=== PATIENT | male | born 1995 | race African-American/Black ===

== ENCOUNTER → 2018-05-09 | Outpatient (CLI) | payer OTHER ==
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
== END ==
LOC: RAD 15:17
PROVIDERS: ATTEND Orthopaedic Surgery
DX: S83.411A Sprain of medial collateral ligament of right knee, initial encounter (principal); M89.8X6 Other specified disorders of bone, lower leg
CPT/HCPCS: 73721

== ENCOUNTER 2019-01-10 01:50 | Emergency (ER) | payer OTHER ==
[~2019-01-10] VITALS: Ht 177.8 cm; Wt 86.2 kg
[2019-01-10 02:23] LABS: BASOPHILS % (AUTO) 0 % (0-10); EOSINOPHILS % (AUTO) 12 % (0-10); HEMATOCRIT 44 % (40-54); HEMOGLOBIN 15.5 G/DL (13.3-17.7); LYMPHOCYTES # (AUTO) 1.5 X 10^3 (1.0-4.0); LYMPHOCYTES % (AUTO) 18 % (12-44); MEAN CORPUSCULAR HEMOGLOBIN 28 PG (25-34); MEAN CORPUSCULAR HGB CONC 35 G/DL (32-36); MEAN CORPUSCULAR VOLUME 81 FL (80-99); MEAN PLATELET VOLUME 11.2 FL (7.4-10.4); MONOCYTES # (AUTO) 0.8 X 10^3 (0.0-1.0); MONOCYTES % (AUTO) 10 % (0-12); NEUTROPHILS # (AUTO) 4.9 X 10^3 (1.8-7.8); NEUTROPHILS % (AUTO) 59 % (42-75); PLATELET COUNT 166 10^3/uL (130-400); RED CELL DISTRIBUTION WIDTH 13.1 % (10.0-14.5); WHITE BLOOD COUNT 8.3 10^3/uL (4.3-11.0)
[2019-01-10 02:29] LABS: INR 1.1 (0.8-1.4); PROTHROMBIN TIME PATIENT 14.4 SEC (12.2-14.7)
[2019-01-10 02:37] LABS: ALANINE AMINOTRANSFERASE 67 U/L (0-55); ALBUMIN 4.5 GM/DL (3.2-4.5); ALKALINE PHOSPHATASE 133 U/L (40-136); AMYLASE 81 U/L (25-125); BILIRUBIN,TOTAL 0.7 MG/DL (0.1-1.0); BUN/CREATININE RATIO 15; CALCIUM 9.7 MG/DL (8.5-10.1); CARBON DIOXIDE 26 MMOL/L (21-32); CHLORIDE 102 MMOL/L (98-107); CREATININE SERUM 1.56 MG/DL (0.60-1.30); GFR ESTIMATED > 60; GLUCOSE 91 MG/DL (70-105); LIPASE 16 U/L (8-78); MAGNESIUM 2.2 MG/DL (1.8-2.4); POTASSIUM 3.9 MMOL/L (3.6-5.0); SODIUM 139 MMOL/L (135-145); TOTAL PROTEIN 7.7 GM/DL (6.4-8.2)
[2019-01-10] MEDS ORDERED: LACTATED RINGERS 1,000 ML IV ONE ×2 (02:51→03:11)
[2019-01-10 02:52] LABS: BILIRUBIN,URINE NEGATIVE (NEGATIVE); CLARITY,URINE CLEAR; COLOR,URINE YELLOW; GLUCOSE, URINE (UA) NEGATIVE (NEGATIVE); KETONES,URINE NEGATIVE (NEGATIVE); LEUKOCYTE ESTERASE ,URINE NEGATIVE (NEGATIVE); NITRITE,URINE NEGATIVE (NEGATIVE); PH,URINE 6 (5-9); PROTEIN,URINE 1+ (NEGATIVE); UROBILINOGEN,URINE NORMAL (NORMAL)
[2019-01-10 03:00] LABS: BACTERIA,URINE NEGATIVE /HPF; URINE OTHER FEW SPERM /HPF
[2019-01-10] MEDS ORDERED: KETOROLAC 30 MG/ML VIAL IVP ONE (03:00)
[2019-01-10 03:08] LABS: AMPHETAMINE SCREEN, URINE NEGATIVE (NEGATIVE); BARBITURATE SCREEN URINE NEGATIVE (NEGATIVE); BENZODIAZEPINES SCREEN URINE NEGATIVE (NEGATIVE); CANNABINOID SCREEN, URINE NEGATIVE (NEGATIVE); COCAINE SCREEN URINE NEGATIVE (NEGATIVE); METHADONE STAT NEGATIVE (NEGATIVE); METHAMPHETAMINE SCREEN URINE S NEGATIVE (NEGATIVE); OPIATE SCREEN URINE NEGATIVE (NEGATIVE); OXYCODONE STAT NEGATIVE (NEGATIVE); PROPOXYPHENE STAT NEGATIVE (NEGATIVE); TRICYCLIC ANTIDEPRESSANTS SCRE NEGATIVE (NEGATIVE)
[2019-01-10] MEDS ORDERED: NS IV 1000 ML 0 ML ONE (03:11)
[2019-01-10] MEDS ORDERED: METH4TAB PO ×2 (03:30→03:55)
--- NOTE | 2019-01-10 03:30 | ED Chest Pain ---
General Chief Complaint: Chest Pain Stated Complaint: PT STS CHEST HURTS Source: patient Exam Limitations: no limitations History of Present Illness Date Seen by Provider: Jan 10, 2019 Time Seen by Provider: 02:10 Initial Comments PT ARRIVES VIA POV FROM HOME C/O LEFT UPPER CHEST PAIN SINCE 0100 PAIN BEGAN WHILE TRYING TO GO TO SLEEP PAIN IS CONSTANT AND NOTHING WORSENS OR IMPROVES PAIN HAS NOT TAKEN ANYTHING FOR PAIN NO RADIATION OF PAIN NO SHORTNESS OF BREATH AND DOES NOT HURT TO BREATHE NO SWEATS NO SWELLING ANYWHERE NO COUGH, URI SYMPTOMS OR RECENT ILLNESS NO FEVER NO HISTORY OF SIMILAR DENIES WORKING OUT MORE THAN NORMAL--PT IS FOOTBALL PLAYER DENIES ANY ENERGY DRINKS, OR SUPPLEMENTS, ETC. PCP: NONE / [employer] STUDENT Allergies and Home Medications Allergies Coded Allergies: meperidine (Verified Allergy, Unknown, Rash, 01/10/19) Home Medications Methylprednisolone 4 Mg Tab.ds.pk, 4 MG PO UD Prescribed by: SOFI ASKEW on 01/10/19 0765 Patient Home Medication List Home Medication List Reviewed: Yes Review of Systems Review of Systems Constitutional: no symptoms reported EENTM: No Symptoms Reported Respiratory: No Symptoms Reported Cardiovascular: See HPI, Chest Pain Gastrointestinal: No Symptoms Reported Genitourinary: No Symptoms Reported Musculoskeletal: no symptoms reported Skin: no symptoms reported Psychiatric/Neurological: No Symptoms Reported Endocrine: No Symptoms Reported Hematologic/Lymphatic: No Symptoms Reported Past Gucictw-Doyjzg-Ahaywh Hx Patient Social History Alcohol Use: Denies Use Recreational Drug Use: No Smoking Status: Never a Smoker Recent Foreign Travel: No Contact w/Someone Who Travel: No Past Medical History Surgeries: Yes (BILATERAL SHOULDER SURGERIES/LABRUM TEARS; RIGHT KNEE ARTHROSCOPY) Orthopedic Respiratory: No Cardiac: No Neurological: No Genitourinary: No Gastrointestinal: No Musculoskeletal: No Endocrine: No HEENT: No Cancer: No Psychosocial: No Integumentary: No Blood Disorders: No Physical Exam Vital Signs Vital Signs - First Documented 01/10/19 01/10/19 02:03 04:15 Temp 96.4 Pulse 73 Resp 18 B/P (MAP) 142/96 (111) Pulse Ox 100 O2 Delivery Room Air Capillary Refill : Height, Weight, BMI Height: '" Weight: lbs. oz. kg; BMI Method: General Appearance: No Apparent Distress, WD/WN (VERY ATHLETIC/MUSCULAR BUILD), Other (SMILING, MOVES WITHOUT DIFFICULTY, DOES NOT APPEAR TO BE IN ANY DISCOMFORT OR DISTRESS OR APPEAR ILL) Neck: Full Range of Motion, Normal Inspection, Non Tender, Supple Respiratory: Chest Non Tender, Normal Breath Sounds, No Accessory Muscle Use, No Respiratory Distress Cardiovascular: Regular Rate, Rhythm, No Edema, No JVD, No Murmur, Normal Peripheral Pulses Gastrointestinal: Normal Bowel Sounds, No Organomegaly, No Pulsatile Mass, Non Tender, Soft Extremity: Normal Capillary Refill, Normal Inspection, Normal Range of Motion, Non Tender, No Calf Tenderness, No Pedal Edema Neurologic/Psychiatric: Alert, Oriented x3, No Motor/Sensory Deficits, Normal Mood/Affect, ethics manager II-XII Norm as Tested Skin: Normal Color (PT IS BLACK), Warm/Dry; No Rash Progress/Results/Core Measures Results/Orders Lab Results Laboratory Tests Test 01/10/19 02:08 01/10/19 02:30 Range/Units White Blood Count 8.3 4.3-11.0 10^3/uL Red Blood Count 5.46 4.35-5.85 10^6/uL Hemoglobin 15.5 13.3-17.7 G/DL Hematocrit 44 40-54 % Mean Corpuscular Volume 81 80-99 FL Mean Corpuscular Hemoglobin 28 25-34 PG Mean Corpuscular Hemoglobin Concent 35 32-36 G/DL Red Cell Distribution Width 13.1 10.0-14.5 % Platelet Count 166 130-400 10^3/uL Mean Platelet Volume 11.2 H 7.4-10.4 FL Neutrophils (%) (Auto) 59 42-75 % Lymphocytes (%) (Auto) 18 12-44 % Monocytes (%) (Auto) 10 0-12 % Eosinophils (%) (Auto) 12 H 0-10 % Basophils (%) (Auto) 0 0-10 % Neutrophils # (Auto) 4.9 1.8-7.8 X 10^3 Lymphocytes # (Auto) 1.5 1.0-4.0 X 10^3 Monocytes # (Auto) 0.8 0.0-1.0 X 10^3 Eosinophils # (Auto) 1.0 H 0.0-0.3 10^3/uL Basophils # (Auto) 0.0 0.0-0.1 10^3/uL Erythrocyte Sedimentation Rate 3 0-15 MM/HR Prothrombin Time 14.4 12.2-14.7 SEC INR Comment 1.1 0.8-1.4 Activated Partial Thromboplast Time 29 24-35 SEC Sodium Level 139 135-145 MMOL/L Potassium Level 3.9 3.6-5.0 MMOL/L Chloride Level 102 98-107 MMOL/L Carbon Dioxide Level 26 21-32 MMOL/L Anion Gap 11 5-14 MMOL/L Blood Urea Nitrogen 24 H 7-18 MG/DL Creatinine 1.56 H 0.60-1.30 MG/DL Estimat Glomerular Filtration Rate > 60 BUN/Creatinine Ratio 15 Glucose Level 91 70-105 MG/DL Calcium Level 9.7 8.5-10.1 MG/DL Corrected Calcium 9.3 8.5-10.1 MG/DL Magnesium Level 2.2 1.8-2.4 MG/DL Total Bilirubin 0.7 0.1-1.0 MG/DL Aspartate Amino Transf (AST/SGOT) 43 H 5-34 U/L Alanine Aminotransferase (ALT/SGPT) 67 H 0-55 U/L Alkaline Phosphatase 133 40-136 U/L Myoglobin 101.8 H 10.0-92.0 NG/ML Troponin I < 0.028 <0.028 NG/ML B-Type Natriuretic Peptide < 10.0 <100.0 PG/ML Total Protein 7.7 6.4-8.2 GM/DL Albumin 4.5 3.2-4.5 GM/DL Amylase Level 81 25-125 U/L Lipase 16 8-78 U/L Serum Alcohol < 10 <10 MG/DL Urine Color YELLOW Urine Clarity CLEAR Urine pH 6 5-9 Urine Specific [place] 1.020 1.016-1.022 Urine Protein 1+ H NEGATIVE Urine Glucose (UA) NEGATIVE NEGATIVE Urine Ketones NEGATIVE NEGATIVE Urine Nitrite NEGATIVE NEGATIVE Urine Bilirubin NEGATIVE NEGATIVE Urine Urobilinogen NORMAL NORMAL MG/DL Urine Leukocyte Esterase NEGATIVE NEGATIVE Urine RBC (Auto) NEGATIVE NEGATIVE Urine RBC NONE /HPF Urine WBC NONE /HPF Urine Squamous Epithelial Cells NONE /HPF Urine Crystals NONE /LPF Urine Bacteria NEGATIVE /HPF Urine Casts NONE /LPF Urine Mucus SMALL H /LPF Urine Other FEW SPERM H /HPF Urine Culture Indicated NO Urine Opiates Screen NEGATIVE NEGATIVE Urine Oxycodone Screen NEGATIVE NEGATIVE Urine Methadone Screen NEGATIVE NEGATIVE Urine Propoxyphene Screen NEGATIVE NEGATIVE Urine Barbiturates Screen NEGATIVE NEGATIVE Ur Tricyclic Antidepressants Screen NEGATIVE NEGATIVE Urine Phencyclidine Screen NEGATIVE NEGATIVE Urine Amphetamines Screen NEGATIVE NEGATIVE Urine Methamphetamines Screen NEGATIVE NEGATIVE Urine Benzodiazepines Screen NEGATIVE NEGATIVE Urine Cocaine Screen NEGATIVE NEGATIVE Urine Cannabinoids Screen NEGATIVE NEGATIVE My Orders Orders - ANT ASKEWA [place] DO Cbc With Automated Diff (01/10/19 02:14) Magnesium (01/10/19 02:14) Ekg Tracing (01/10/19 02:14) Cardiac Profile 1 (01/10/19 02:14) Comprehensive Metabolic Panel (01/10/19 02:14) Myoglobin Serum (01/10/19 02:14) Protime With Inr (01/10/19 02:14) Partial Thromboplastin Time (01/10/19 02:14) O2 (01/10/19 02:14) Monitor-Rhythm Ecg Trace Only (01/10/19 02:14) Ed Iv/Invasive Line Start (01/10/19 02:14) Lipase (01/10/19 02:14) Amylase (01/10/19 02:14) BNP (01/10/19 02:14) Alcohol (01/10/19 02:14) Erythrocyte Sedimentation Rate (01/10/19 02:14) Drug Screen Stat (Urine) (01/10/19 02:14) Ua Culture If Indicated (01/10/19 02:14) Ketorolac Injection (Toradol Injection) (01/10/19 03:00) Chest Pa/Lat (2 View) (01/10/19 02:50) Ed Iv/Invasive Line Start (01/10/19 02:51) Lactated Ringers (Lr 1000 Ml Iv Solution (01/10/19 02:51) Ns Iv 1000 Ml (Sodium Chloride 0.9%) (01/10/19 03:11) Ekg Tracing (01/10/19 03:38) Lactated Ringers (Lr 1000 Ml Iv Solution (01/10/19 03:11) Medications Given in ED Current Medications Medications Dose Ordered Sig/Falguni Route Start Time Stop Time Status Last Admin Dose Admin Ketorolac Tromethamine 30 mg ONCE ONCE IVP 01/10/19 03:00 01/10/19 03:01 DC 01/10/19 03:19 30 MG Lactated Ringer's 1,000 ml @ 0 mls/hr Q0M ONCE IV 01/10/19 02:51 01/10/19 04:16 DC 01/10/19 03:18 999 MLS/HR Vital Signs/I&O 01/10/19 01/10/19 01/10/19 02:03 02:03 04:15 Temp 96.4 96.4 Pulse 73 67 Resp 18 18 B/P (MAP) 142/96 (111) 145/78 (100) Pulse Ox 100 O2 Delivery Room Air Room Air Progress Progress Note : Progress Note UNEVENTFUL ER STAY Initial ECG Impression Date: Jan 10, 2019 Initial ECG Impression Time: 02:04 Initial ECG Rate: 73 Initial ECG Rhythm: Normal Sinus Initial ECG Impression: Nonspecific Changes Initial ECG Comparisson: No Previous ECG Available EKG : EKG Time: 04:02 Rate: 64 Rhythm: Normal Sinus ECG Comparisson: Unchanged ECG Impression: Nonspecific Changes Diagnostic Imaging Comments CXR--NO ACUTE PROCESS, PENDING RADIOLOGIST REVIEW Reviewed: Reviewed by Me Departure Impression Primary Impression: LEFT UPPER CHEST PAIN Additional Impressions: Dehydration Renal insufficiency MILDLY ELEVATED LIVER ENZYMES Disposition: 01 HOME, SELF-CARE Condition: Stable Departure-Patient Inst. Referrals: NO,LOCAL PHYSICIAN (PCP/Family) Primary Care Physician Patient Instructions: Chest Pain That Is Not Caused by the Heart (DC), Dehydration, Adult (DC), Liver Function Test Add. Discharge Instructions: INCREASE YOUR FLUIDS--DRINK ENOUGH SO YOU ARE URINATING EVERY 2 -3 HOURS WHILE AWAKE FOLLOW UP WITH OF ELIU IN 2-3 DAYS IF NO BETTER, RETURN TO ER IF WORSE All discharge instructions reviewed with patient and/or family. Voiced understan [place]. Scripts Methylprednisolone (Medrol) 4 Mg Tab.ds.pk 4 MG PO UD, #1 PKG Prov: SOFI ASKEW DO 01/10/19 SOFI ASKEW DO Jan 10, 2019 03:30
[2019-01-10 04:15] VITALS: BP 145/78
--- NOTE | 2019-01-10 05:53 | Diagnostic Imaging Report ---
CHEST PA/LAT (2 VIEW) Indication: Chest pain Comparison: None available. Findings: No focal pneumonic consolidation, pleural effusion or pneumothorax. Normal heart size and pulmonary vasculature. Impression: No acute cardiopulmonary process. Dictated by: Dictated on workstation # [id number]
== END 2019-01-10 04:16 | disposition home or self-care (01) ==
LOC: EDUNIT# 01:50 → ER 01:53
DX: R07.9 Chest pain, unspecified (principal); E86.0 Dehydration; N28.9 Disorder of kidney and ureter, unspecified; R94.5 Abnormal results of liver function studies; Z88.8 Allergy status to other drugs, medicaments and biological substances; Z79.52 Long term (current) use of systemic steroids; Z98.890 Other specified postprocedural states
CPT/HCPCS: 36415; 71046; 80053; 80306; 80320; 81000; 82150; 83690; 83735; 83874; 83880; 84484; 85025; 85610; 85652; 85730; 93005; 93041; 96361; 96374

== ENCOUNTER 2019-03-02 16:03 | Outpatient (RCR) | payer OTHER ==
[2019-02-15 16:32] LABS: BASOPHILS % (AUTO) 1 % (0-10); EOSINOPHILS # (AUTO) 0.7 10^3/uL (0.0-0.3); EOSINOPHILS % (AUTO) 10 % (0-10); HEMATOCRIT 46 % (40-54); LYMPHOCYTES # (AUTO) 1.8 X 10^3 (1.0-4.0); LYMPHOCYTES % (AUTO) 26 % (12-44); MEAN CORPUSCULAR HEMOGLOBIN 29 PG (25-34); MEAN CORPUSCULAR HGB CONC 35 G/DL (32-36); MEAN CORPUSCULAR VOLUME 81 FL (80-99); MONOCYTES # (AUTO) 0.6 X 10^3 (0.0-1.0); MONOCYTES % (AUTO) 9 % (0-12); NEUTROPHILS # (AUTO) 3.9 X 10^3 (1.8-7.8); NEUTROPHILS % (AUTO) 55 % (42-75); PLATELET COUNT 204 10^3/uL (130-400); RED CELL DISTRIBUTION WIDTH 13.1 % (10.0-14.5)
[2019-02-15 16:53] LABS: ALANINE AMINOTRANSFERASE 24 U/L (0-55); ALBUMIN 4.5 GM/DL (3.2-4.5); ALKALINE PHOSPHATASE 87 U/L (40-136); BILIRUBIN,TOTAL 1.1 MG/DL (0.1-1.0); BUN/CREATININE RATIO 17; CALCIUM 9.9 MG/DL (8.5-10.1); CARBON DIOXIDE 28 MMOL/L (21-32); CHLORIDE 102 MMOL/L (98-107); CREATININE SERUM 1.38 MG/DL (0.60-1.30); GFR ESTIMATED > 60; GLUCOSE 68 MG/DL (70-105); POTASSIUM 4.1 MMOL/L (3.6-5.0); SODIUM 139 MMOL/L (135-145); TOTAL PROTEIN 7.6 GM/DL (6.4-8.2)
[2019-02-15 16:55] LABS: ERYTHROCYTE SEDIMENTATION RATE 2 MM/HR (0-15)
[2019-02-17 06:43] LABS: HEPATITIS C ANTIBODY C Non-Reactive (Non-Reactive)
[~2019-03-02 16:03] MED LIST: METH4TAB PO
[2019-03-02 17:17] LABS: BASOPHILS % (AUTO) 1 % (0-10); EOSINOPHILS # (AUTO) 0.9 10^3/uL (0.0-0.3); EOSINOPHILS % (AUTO) 11 % (0-10); HEMATOCRIT 44 % (40-54); HEMOGLOBIN 15.4 G/DL (13.3-17.7); LYMPHOCYTES # (AUTO) 1.8 X 10^3 (1.0-4.0); LYMPHOCYTES % (AUTO) 24 % (12-44); MEAN CORPUSCULAR HEMOGLOBIN 28 PG (25-34); MEAN CORPUSCULAR HGB CONC 35 G/DL (32-36); MEAN CORPUSCULAR VOLUME 82 FL (80-99); MEAN PLATELET VOLUME 11.6 FL (7.4-10.4); MONOCYTES # (AUTO) 0.6 X 10^3 (0.0-1.0); MONOCYTES % (AUTO) 7 % (0-12); NEUTROPHILS # (AUTO) 4.3 X 10^3 (1.8-7.8); NEUTROPHILS % (AUTO) 57 % (42-75); PLATELET COUNT 141 10^3/uL (130-400); RED CELL DISTRIBUTION WIDTH 12.8 % (10.0-14.5); WHITE BLOOD COUNT 7.6 10^3/uL (4.3-11.0)
== END 2019-05-16 | disposition home or self-care (01) ==
LOC: ONC 16:03
PROVIDERS: ATTEND Internal Medicine Hematology & Oncology
DX: D72.1 Eosinophilia (principal); R06.02 Shortness of breath
CPT/HCPCS: 80053; 80074; 82607; 83615; 84484; 85025; 85652; 86038; 86039; 86141; 86480; 86703; 87177; 87328; 99213; 99214

== ENCOUNTER → 2019-04-17 | Outpatient (CLI) | payer OTHER | LOC: RT 10:43 | PROVIDERS: ATTEND Internal Medicine Hematology & Oncology | DX: D72.1 Eosinophilia (principal); J98.8 Other specified respiratory disorders; R06.02 Shortness of breath | CPT/HCPCS: 94060; 94726; 94729 ==

== ENCOUNTER → 2019-05-13 | Emergency (ER) | payer OTHER | END | disposition left against medical advice (07) | LOC: EDUNIT# 00:02 → ER 00:04 | DX: M25.571 Pain in right ankle and joints of right foot (principal); R07.9 Chest pain, unspecified ==